=== PATIENT | female | born 2000 | race Two or more races ===

== ENCOUNTER 2024-05-15 09:30 | Outpatient (CLI) | payer OTHER | END 2024-05-15 10:00 | disposition home or self-care (01) | LOC: PPH VACUNA 09:30 | PROVIDERS: ATTEND Emergency Medicine Pediatric Emergency Medicine | DX: Z23 Encounter for immunization (principal) ==

== ENCOUNTER 2024-08-09 07:41 | Emergency (ER) | payer OTHER ==
[~2024-08-09] VITALS: Ht 157.5 cm; Wt 52.2 kg
[2024-08-09] MEDS ORDERED: STRIBILD TABLE1 EACH PO (08:34)
[2024-08-09] MEDS ORDERED: PEPCID AC20 MG PO (08:34)
[2024-08-09] MEDS ORDERED: ZOFRAN8 MG PO (08:34)
[2024-08-09] MEDS ORDERED: ONDANSETRON 4 MG TAB.RAPDIS PO ONE ×2 (08:42→08:45)
[2024-08-09] MEDS ORDERED: ELVITEG/COB/EMTRI/TENOFO DISOP 1 UDTAB TABLET PO ONE ×2 (08:43→08:45)
== END 2024-08-09 08:51 | disposition home or self-care (01) ==
LOC: ER 07:43
DX: S61.231A Puncture wound without foreign body of left index finger without damage to nail, initial encounter (principal); W46.0XXA Contact with hypodermic needle, initial encounter; Y93.89 Activity, other specified; Y92.69 Other specified industrial and construction area as the place of occurrence of the external cause; Y99.8 Other external cause status